=== PATIENT | female | born 1960 ===

== ENCOUNTER 2019-05-31 15:15 | Emergency (ER) | payer MEDICARE ==
[~2019-05-31 15:15] MED LIST: Iopamidol-370 76% 500 ML 1 ML ONE
[2019-05-31 18:39] LABS: Bacteria/HPF None Seen HPF (None Seen); Bilirubin Negative (Negative); Blood, Urine Negative (Negative); Clarity Clear (Clear); Glucose, Urine (Dipstick) Normal (Negative); Leukocyte 75 Leu/uL (Negative); Nitrite Negative (Negative); Protein, Urine (Dipstick) Negative (Neg-Trace); RBC/HPF 0-3 HPF (0-3); Squamous Epithelial 0-3 HPF (0-3); Urobilinogen Normal mg/dL (Less than 2); WBC/HPF 0-3 HPF (0-3)
[2019-05-31 18:47] LABS: #Basophils 0.1 thou/uL (0.0-0.2); #Eosinphils 0.2 thou/uL (0.0-0.7); #Lymphocytes 2.8 thou/uL (1.20-3.40); #Monocytes 0.5 thou/uL (0.11-0.59); #Neutrophils 3.3 thou/uL (1.40-6.50); %Basophils 1.7 % (0.0-1.0); %Eosinophils 2.3 % (0.0-10.0); %Lymphocytes 41.2 % (21.0-51.0); %Monocytes 7.2 % (0.0-10.0); %Neutrophils 47.7 % (42.0-75.0); Mean Corpuscular HGB CONC 34.6 g/dL (32.0-36.0); Mean Corpuscular Hemoglobin 30.7 pg (27.0-31.0); Mean Corpuscular Volume 88.9 fL (78.0-98.0); Mean Platelet Volume 7.4 fL (7.4-10.4); Platelet Count 295 thou/uL (130-400); RBC Distribution Width 12.1 % (11.5-14.5); Red Blood Cell (RBC) Count 4.55 mill/uL (4.20-5.40); White Blood Cell (WBC) Count 6.9 thou/uL (4.8-10.8)
--- NOTE | 2019-05-31 19:05 | RAD ---
ONE VIEW CHEST: 05/31/19 HISTORY: Flu-like symptoms. FINDINGS: Elongation of the aorta. Normal cardiac silhouette. The pulmonary vessels and hilum are normal. Costo phrenic angles are clear. No masses or consolidation. No pneumothorax or acute osseous abnormalities. IMPRESSION: Elongation of the aorta. No acute cardiopulmonary process. POS: PPP
[2019-05-31 19:07] LABS: ALT (SGPT) 12 U/L (8-55); AST (SGOT) 15 U/L (5-34); Albumin 4.6 g/dL (3.5-5.0); Alkaline Phosphatase 102 U/L (40-110); Anion Gap 12 mmol/L (10-20); BUN (Urea Nitrogen) 17 mg/dL (9.8-20.1); Bilirubin, Total 0.4 mg/dL (0.2-1.2); Calc. Creatinine Clearance 0 mL/min (70-130); Calcium 9.2 mg/dL (7.8-10.44); Carbon Dioxide 29 mmol/L (22-29); Chloride 103 mmol/L (98-107); Estimated GFR-MDRD 67; Globulin 3.7 g/dL (2.4-3.5); Glucose 77 mg/dL (70-105); Potassium 3.6 mmol/L (3.5-5.1); Protein, Total 8.3 g/dL (6.0-8.3); Sodium 140 mmol/L (136-145)
--- NOTE | 2019-05-31 22:37 | CT ---
CT Abdomen Pelvis W Con History: Nausea, abdominal pain, body aches Comparison: None. Findings: Mild atelectasis in the lung bases. No pericardial effusion. Mild dilatation of the main pa ncreatic duct. Prior cholecystectomy. Camas effect of the intrahepatic and extrahepatic biliary system. No hydronephrosis. Too small to characterize 6 mm hypodensity interpolar right kidney and interpolar left kidney. Adrenal glands are unremarkable. Celiac trunk and superior mesenteric arteries are patent. No free intraperitoneal gas or fluid. The appendix is felt to be visualized and is normal. No hydrone phrosis. No acute osseous abnormality. Impression: No acute inflammatory process within the abdomen or pelvis.
== END 2019-05-31 23:03 | disposition home or self-care (01) ==
LOC: ERS 15:15
DX: R19.7 Diarrhea, unspecified (principal); R11.2 Nausea with vomiting, unspecified; R10.9 Unspecified abdominal pain; R10.811 Right upper quadrant abdominal tenderness; R10.812 Left upper quadrant abdominal tenderness; E03.9 Hypothyroidism, unspecified; E78.5 Hyperlipidemia, unspecified; E78.00 Pure hypercholesterolemia, unspecified; F41.9 Anxiety disorder, unspecified; F17.210 Nicotine dependence, cigarettes, uncomplicated; M79.7 Fibromyalgia; Z71.6 Tobacco abuse counseling; Z79.899 Other long term (current) drug therapy
CPT/HCPCS: 36415; 71045; 74177; 80053; 81003; 81015; 83690; 85025; 87804; 96372; 99406; J0500; Q9967